=== PATIENT | female | born 1990 | race Two or more races ===

== ENCOUNTER → 2020-05-19 | Outpatient (REF) | LOC: M LABSMTC 10:03 | PROVIDERS: ATTEND Pediatrics | DX: Z11.52 Encounter for screening for COVID-19 (principal) ==

== ENCOUNTER → 2020-05-22 | Outpatient (REF) | LOC: M LABSMTC 12:37 | PROVIDERS: ATTEND Pediatrics | DX: Z20.822 Contact with and (suspected) exposure to COVID-19 (principal) ==